=== PATIENT | female | born 1975 | race African-American/Black ===

== ENCOUNTER 2020-09-12 11:16 | Outpatient (REF) | payer MEDICAID, SELFPAY ==
[2020-09-12 13:34] LABS: Hematocrit 40.8 % (37-47); Hemoglobin 13.9 g/dl (12.0-16.0); Mean Corpuscular HGB Conc 34.1 g/dl (31.0-35.0); Mean Corpuscular Hemoglobin 30.5 pg (27.0-33.0); Mean Corpuscular Volume 89.5 fL (80-98); Platelet Count 264 X10*3/uL (160-400); Red Blood Count 4.56 X10*6/uL (4.20-5.50); Red Cell Distribution Width 11.9 % (11.0-16.0); White Blood Count 5.5 X10*3/uL (4.8-10.8)
[2020-09-12 13:58] LABS: Alanine Aminotransferase 24 U/L (0-31); Albumin Level 4.4 g/dL (3.5-5.0); Alkaline Phosphatase 71 U/L (39-117); Anion Gap 10 (12-20); Aspartate Amino Transferase 15 U/L (5-31); Bilirubin Total 1.1 mg/dL (0.0-1.0); Blood Urea Nitrogen 9 mg/dL (9-16); Calcium 9.3 mg/dL (8.4-10.2); Carbon Dioxide 32 mmol/L (22-29); Chloride 104 mmol/L (96-108); Estimated Glomerular Filt Rate > 60; Glucose Random 92 mg/dL (60-115); Sodium 142 mmol/L (135-145); Total Protein 7.6 g/dL (6.5-8.0)
[2020-09-12 14:19] LABS: Vitamin B12 674 pg/mL (200-900)
[2020-09-12 14:32] LABS: Erythrocyte Sedimentation Rate 3 MM/HR (0-20)
[2020-09-15 18:32] LABS: Acetylcholine Receptor Binding <0.30 nmol/L
== END 2020-09-12 11:17 | disposition home or self-care (01) ==
LOC: HO.LAB 11:16
PROVIDERS: PCP Internal Medicine; Visit Provider Internal Medicine
DX: M79.2 Neuralgia and neuritis, unspecified (principal); R52 Pain, unspecified
CPT/HCPCS: 36415; 80053; 82607; 83519; 85027; 85652

== ENCOUNTER → 2020-11-07 15:34 | Outpatient (BNVA) | payer MEDICAID, SELFPAY | PROVIDERS: PCP Internal Medicine; Visit Provider Nurse Practitioner Family | DX: M47.22 Other spondylosis with radiculopathy, cervical region (principal); M79.18 Myalgia, other site | CPT/HCPCS: 99212 ==

== ENCOUNTER 2021-01-02 15:57 | Outpatient (REF) | payer MEDICAID, SELFPAY ==
--- NOTE | ~2021-01-02 | MM_ITS ---
EXAMINATION: MM DIAGNOSTIC DIGITAL BREAST TOMOSYNTHESIS, BILATERAL US DIAGNOSTIC ULTRASOUND BREAST, LEFT CLINICAL INFORMATION: 45-year-old with left breast pain noted at time of screening appointment. Screening converted to diagnostic. Mild bruising in area pain. No palpable mass or discharge. Prior history right breast surgery 2013. Family history breast cancer, mother. The lifetime risk of breast cancer based on the Tyrer-Cuzick Model is 37%. COMPARISON: Mammography: 05/06/2018 (new baseline). TECHNIQUE: Digital breast tomosynthesis is performed in both the craniocaudal and mediolateral oblique views along with computer-aided detection (CAD). Synthesized 2D images are generated from the tomosynthesis. Ultrasound left breast is targeted to the area of clinical concern, outer quadrant which also includes the area of subtle cutaneous bruising. Grayscale imaging and color Doppler are performed without and with harmonics. FINDINGS: There are scattered areas of fibroglandular density (ACR BI-RADS breast composition Category b). Parenchymal pattern is similar to prior exam. There is no interval mass or architectural abnormality or abnormal calcifications. No developing density. No skin thickening or retraction. No coarsening of the Kaushik's ligaments. No duct ectasia. No significant changes. Ultrasound demonstrates no cystic or solid mass, architectural abnormality, or focal duct ectasia. No skin thickening or edema tracking in the soft tissue planes. Results are discussed with the patient at time of visit, using an bilingual interpreter. MM/MM tomosynthesis diagnostic BI IMPRESSION: 1. No mammographic evidence of malignancy or inflammatory changes. 2. Unremarkable targeted left breast ultrasound. ASSESSMENT: BI-RADS 1: Negative RECOMMENDATION: 1. Patient should be managed based on the clinical impression. 2. The lifetime risk of breast cancer based on the Tyrer-Cuzick Model is 37%. Additional annual adjunct screening with breast MRI may be of benefit in women with a risk score of 20% or greater. 3. Otherwise, routine annual screening mammography. This patient's information was entered into a reminder system with a target due date for their next mammogram.
== END 2021-01-02 15:58 | disposition home or self-care (01) ==
LOC: HO.MAMMO 15:57
PROVIDERS: PCP Internal Medicine; Visit Provider Internal Medicine
DX: N64.4 Mastodynia (principal)
CPT/HCPCS: 76642; 77062; 77066

== ENCOUNTER 2021-02-17 11:37 | Day surgery (SDC) | payer MEDICAID, SELFPAY ==
--- NOTE | 2021-02-15 10:43 | HO.ANESPROP2 ---
Documented by User: Jackie Julioney 02/15/21 10:44 HPI - Anesthesia Eval Consult details Narrative: 45yo F for Right C5-C6-C7 Medial Branch Blocks PMFSH Active Problems Active Problems: All Active Problems (Updated 02/13/21 @ 11:40 by Angela Peng) Spondylosis of cervical spine with radiculopathy (Acute) Myofascial pain (Acute) Past Medical History Medical History Asthma Cervical radiculopathy HTN (hypertension) Surgical History Surgical History H/O tubal ligation Status post left breast biopsy Social History Social History Patient Tobacco Use Status: Current everyday Tobacco user Use of substances other than those prescribed or required for medical reasons: No Are you DNR?: No Advance Directives: No Advance Directives Information Provided: Yes Meds Allergies Allergy/AdvReac Type Severity Reaction Status Date / Time aspirin [ASA] Allergy Severe SWELLING, Verified 02/17/21 12:41 throat edema Home Medications Medication Instructions Recorded Confirmed Last Taken Type albuterol sulfate [ProAir HFA] 2 puff PO Q4-6H PRN 02/13/21 02/13/21 Unknown History brimonidine 1 drp OPHTHALMIC (EYE) Q12H 02/13/21 02/13/21 Unknown History duloxetine 1 cap PO DAILY 02/13/21 02/13/21 Unknown History fexofenadine 1 tab PO DAILY 02/13/21 02/13/21 Unknown History fluticasone propionate 1 - 2 spray INTRANASAL DAILY PRN 02/13/21 02/13/21 Unknown History fluticasone propionate [Flovent 1 puff PO BID 02/13/21 02/13/21 Unknown History Diskus] gabapentin 1 cap PO TID 02/13/21 02/13/21 Unknown History hydrochlorothiazide 1 tab PO DAILY 02/13/21 02/13/21 Unknown History Exam Exam Date and Time: February 15, 2021 1043 Height,Weight and Vital Signs: Weight 72.575 kg Pertinent Lab Results Pertinent Lab Results: Laboratory Tests 09/12/20 09/12/20 11:48 11:48 WBC 5.5 Hgb 13.9 Hct 40.8 Plt Count 264 Sodium 142 Potassium 4.0 Chloride 104 Carbon Dioxide 32 H BUN 9 Creatinine 0.93 Assessment and Plan Assessment Anesthesia Assessment: Chart Reviewed Documented by User: Johnny Mathew 02/17/21 14:02 PMF Past Medical History Medical History Asthma Cervical radiculopathy HTN (hypertension) Surgical History Surgical History H/O tubal ligation Status post left breast biopsy Social History Social History Patient Tobacco Use Status: Current everyday Tobacco user Use of substances other than those prescribed or required for medical reasons: No Are you DNR?: No Advance Directives: No Advance Directives Information Provided: Yes Meds Allergies Allergy/AdvReac Type Severity Reaction Status Date / Time aspirin [ASA] Allergy Severe SWELLING, Verified 02/17/21 12:41 throat edema Home Medications Medication Instructions Recorded Confirmed Last Taken Type albuterol sulfate [ProAir HFA] 2 puff PO Q4-6H PRN 02/13/21 02/13/21 Unknown History brimonidine 1 drp OPHTHALMIC (EYE) Q12H 02/13/21 02/13/21 Unknown History duloxetine 1 cap PO DAILY 02/13/21 02/13/21 Unknown History fexofenadine 1 tab PO DAILY 02/13/21 02/13/21 Unknown History fluticasone propionate 1 - 2 spray INTRANASAL DAILY PRN 02/13/21 02/13/21 Unknown History fluticasone propionate [Flovent 1 puff PO BID 02/13/21 02/13/21 Unknown History Diskus] gabapentin 1 cap PO TID 02/13/21 02/13/21 Unknown History hydrochlorothiazide 1 tab PO DAILY 02/13/21 02/13/21 Unknown History Exam Airway Mallampati Class: II TM Dist: >3cm Neck ROM: Full
--- NOTE | ~2021-02-17 | FL_ITS ---
EXAMINATION: XR FLUOROSCOPY WITH IMAGES CLINICAL INFORMATION: Cervical medial branch blocks. COMPARISON: None. TECHNIQUE: Fluoroscopy performed by Dr. Norris Enrique. Fluoroscopy time: 0.5 minutes DAP: 1.94 mGycm2 Images: 4 FINDINGS: There are 4 needles positioned along the right posterior neck adjacent to the lateral masses of C6, C5, C4 and C3 vertebra with soft tissue contrast opacification. FL/FL guidance in OR IMPRESSION: Fluoroscopy provided to physician during pain management.
[2021-02-17 13:00] VITALS: BP 144/64; PULSE 75; RESP 18; TEMP 36.2; O2SAT 99; BMI 27.9
[2021-02-17 13:00] LABS: UPreg QC Valid YES; Urine Pregnancy NEGATIVE (NEGATIVE)
[2021-02-17] MEDS: Lactated Ringers 1,000 ML 100 ML IVCONT (13:16)
--- NOTE | 2021-02-17 15:58 | HO.ANESPROP2 ---
HPI - Anesthesia Eval Consult details Narrative: 45 yo female patient here for Right C5-C6-C7 Medial Branch Blocks PMFSH Active Problems Active Problems: All Active Problems (Updated 02/13/21 @ 11:40 by Angela Peng) Spondylosis of cervical spine with radiculopathy (Acute) Myofascial pain (Acute) Past Medical History Medical History (Updated 02/17/21 @ 16:23 by Baylee Xie) Asthma Cervical radiculopathy HTN (hypertension) Family History Family history of problems with anesthesia: Yes (Brother- ? Cardiac arrest) Surgical History Surgical History H/O tubal ligation Status post left breast biopsy History of Problems with Anesthesia: No Social History Social History (Updated 02/17/21 @ 16:02 by Baylee Xie) Patient Tobacco Use Status: Current everyday Tobacco user Smoked in Last 30 Days: Yes Use of substances other than those prescribed or required for medical reasons: No Are you DNR?: No Advance Directives: No Advance Directives Information Provided: Yes Meds Allergies Allergy/AdvReac Type Severity Reaction Status Date / Time aspirin [ASA] Allergy Severe SWELLING, Verified 02/17/21 12:41 throat edema Active Medications: Current Medications Generic Name Dose Route Start Last Admin Trade Name Freq PRN Reason Stop Dose Admin Albuterol Sulfate 2.5 mg 02/17/21 12:41 Albuterol Sulfate (0.083%) 2.5 Mg/3 Ml Vial.Neb INHALE ONCE PRN Shortness of Breath/Wheezing Fentanyl 50 mcg 02/17/21 14:02 Fentanyl Citrate/Pf 100 Mcg/2 Ml Vial IVPUSH Q5M PRN Pain, Severe (Pain Scale 7-10) Lactated Ringer's 1,000 mls @ 100 mls/hr 02/17/21 12:45 02/17/21 13:16 Lr IVCONT 100 mls/hr .Q10H ESTELA Administration Ondansetron HCl 4 mg 02/17/21 14:02 Ondansetron Hcl 4 Mg/2 Ml Vial IVPUSH ONCE PRN Nausea and Vomiting Oxycodone HCl 10 mg 02/17/21 14:02 Oxycodone Hcl Immed Release 5 Mg Tablet PO ONCE PRN Pain, Severe (Pain Scale 7-10) Home Medications Medication Instructions Recorded Confirmed Last Taken Type albuterol sulfate [ProAir HFA] 2 puff PO Q4-6H PRN 02/13/21 02/13/21 Unknown History brimonidine 1 drp OPHTHALMIC (EYE) Q12H 02/13/21 02/13/21 Unknown History duloxetine 1 cap PO DAILY 02/13/21 02/13/21 Unknown History fexofenadine 1 tab PO DAILY 02/13/21 02/13/21 Unknown History fluticasone propionate 1 - 2 spray INTRANASAL DAILY PRN 02/13/21 02/13/21 Unknown History fluticasone propionate [Flovent 1 puff PO BID 02/13/21 02/13/21 Unknown History Diskus] gabapentin 1 cap PO TID 02/13/21 02/13/21 Unknown History hydrochlorothiazide 1 tab PO DAILY 02/13/21 02/13/21 Unknown History Exam Exam Date and Time: February 17, 2021 1558 Height,Weight and Vital Signs: Height 5 ft 4 in Weight 73.936 kg Last Vital Signs Temp 97.1 F 02/17/21 13:00 Pulse 75 02/17/21 13:00 Resp 18 02/17/21 13:00 BP 144/64 H 02/17/21 13:00 Pulse Ox 99 02/17/21 13:00 Pertinent Lab Results Pertinent Lab Results: Laboratory Tests 02/17/21 12:42 Urine Test NEGATIVE Airway Mallampati Class: II TM Dist: >3cm Neck ROM: Full Loose/Missing/Broken Teeth: Yes (Broken bottom right) Heart: RRR Lungs: CTAB Assessment and Plan Assessment Anesthesia Assessment: Anesthesia Plan Discussed and Chart Reviewed Final Anesthetic Review NPO: Yes ASA Class: II Final Preanesthetic Review: No Changes in Pt Med Stat, Meds/Allgs Chart Reviewed, Consent Obtained/Reviewed and Anes Risks/Benef Reviewed Patient Risk: Low Procedure Risk: Intermediate Assessment/Block/Sedation in SS: Assess/Block/Sedation-SS Anesthetic Plan Anesthetic Plan: MAC: Disposition: Standard PACU
--- NOTE | 2021-02-17 16:25 | P.HPSUR_ITS ---
Pre-Procedural Eval Section A The patient is an INPATIENT: No Changes since office visit: Yes Patient answered all questions The History & Physical has been completed within 30 days and I have reviewed it.: No Section B Chief Complaint: Spondylosis of Cervical Spine Details of Present Illness: As above Relevant Family History (Specify if Yes): No Relevant Social History: None Present Medications: None Medical History: No relevant PMH History of Previous Operations: No relevant previous surgery Allergies: Allergies Allergy/AdvReac Type Severity Reaction Status Date / Time aspirin [ASA] Allergy Severe SWELLING, Verified 02/17/21 12:41 throat edema Review of Systems Sugical H&P ROS: Negative: Constitution, Cardiovascular, Respiratory, Neurological, Psychiatric, Hem-Onc, Allergic/Immunologic, Gastrointestinal, Genitourinary, Musculoskeletal, Integumentary, Endocrine and Eyes/Ears/Nose/Throat Exam Surgical H&P Exam: Normal: HEENT, Normal: Heart, Normal: Lungs, Normal: Extre mities, Normal: Abdomen, Normal: Skin and Normal: Neurological Plan Diagnosis/Plan: Unchanged I have reviewed the history and physical and performed a pertinent physical examination on my patient. No changes have occurred unless specified.
--- NOTE | 2021-02-17 16:59 | P.BOP_ITS ---
Brief Operative Note Date of Service: 02/17/21 Pre-op diagnosis: Spondylosis cervical spine Post-op diagnosis: same Procedure: Right-sided C4-C5-C6-C7 medial branch block therapeutic Implants: None Surgeon: Norris Enrique MD Anesthesia: MAC Was an Tractor Mechanic Helper used for this Procedure?: No Estimated blood loss (mL): 1 Pathology: none sent Condition: stable Disposition: PACU
--- NOTE | 2021-02-17 16:59 | P.OP_ITS ---
Operative Note Operative Note Date of Service: 02/17/21 Narrative: Informed consent was explained to the patient. All questions were explained and answered. The patient was taken inside the operating room where she was positioned prone on the operating table. [employer] monitors were applied. Patient was sedated. Time-out was performed delineating correct site, side, the nature of the procedure, patient's allergy, preoperative antibiotic if needed. All operating room staff was participating in OR time-out procedure. The back of the neck and upper thorax were prepped with ChloraPrep and draped with sterile towels. Sterilely draped C-arm was brought over the operating field and sq picture of C4- C5- C6- C7 vertebrae were delineated on the screen. Points of interest were delineated as lateral masses on the right of the vertebrae as above. The waste of each lateral mass was chosen as the target of the tip of the needles on AP view and center of paralelloid delineating the lateral mass on the lateral view was chosen as control of each needle position. The projections of the point of interest to the skin were injected with the small amount of local anesthetic lidocaine 2% 1-1.5 cc. After that 22 gauge 3and 1/2 inch spinal needles were driven to the point of interest in tunnel vision fashion. After needles gently contacted the bone at the point of interests the needle was injected with small amount of bupivacaine 0.5%-1cc mixed with kenalog. Total dose of kenalog was 80 mg. Upon completion of the injections the needles were removed and sterile dressings were applied, the patient was awaken and taken outside of the operating room to recovery room where she recovered uneventfully. She went home without immediate complications.
[2021-02-17 17:00] VITALS: BP 118/66; PULSE 65; RESP 10; TEMP 36.2; O2SAT 97
[2021-02-17 17:15] VITALS: BP 131/72; PULSE 64; RESP 18; TEMP 36.2; O2SAT 99
--- NOTE | 2021-02-17 17:27 | PC.NURSE ---
AWAKE RESP EASY REGULAR TOLERATED PO FLUIDS, REVIEW DISCHARGE INSTRUATIONS. NEURO STATUS STABLE NO WEAKNESS REPORTED
== END 2021-02-17 17:36 | disposition home or self-care (01) ==
PROVIDERS: Nurse Practitioner; PCP Internal Medicine; Visit Provider Anesthesiology
PROC: (CPT 64490; principal; 2021-02-17 13:30)
DX: M47.22 Other spondylosis with radiculopathy, cervical region (principal); M79.18 Myalgia, other site; I10 Essential (primary) hypertension; J45.909 Unspecified asthma, uncomplicated; Z79.51 Long term (current) use of inhaled steroids; Z79.899 Other long term (current) drug therapy; Z88.8 Allergy status to other drugs, medicaments and biological substances
CPT/HCPCS: 64490; 64491; 81025; J2250; J3010; J3300; Q9967

== ENCOUNTER 2023-10-09 11:17 | Outpatient (REF) | payer MEDICAID, SELFPAY ==
[2023-10-09 14:36] LABS: MANUAL DIFF FLAG NO
[2023-10-09 14:43] LABS: Basophils Percent Auto 0.3 % (0-2); Eosinophils Absolute Auto 0.1 X10*3/uL (0.0-0.4); Eosinophils Percent Auto 1.6 % (0-4); Hematocrit 41.9 % (37.0-47.0); Hemoglobin 14.3 g/dl (12.0-16.0); Imm Gran Abs Auto 0.07 X10*3/uL (0.00-0.03); Imm Gran Pct Auto 0.9 % (0.0-0.4); Lymphocytes Absolute Auto 1.7 X10*3/uL (1.2-4.9); Mean Corpuscular HGB Conc 34.1 g/dl (31.0-35.0); Mean Corpuscular Hemoglobin 29.9 pg (27.0-33.0); Mean Corpuscular Volume 87.7 fL (80.0-98.0); Mean Platelet Volume 8.9 fL (9.4-12.3); Monocytes Absolute Auto 0.5 X10*3/uL (0.1-1.2); Monocytes Percent Auto 5.7 % (2-11); Neutrophils Absolute Auto 5.5 x10*3/uL (2.0-8.3); Neutrophils Percent Auto 69.5 % (45-73); Platelet Count 236 X10*3/uL (160-400); Red Blood Count 4.78 X10*6/uL (4.20-5.50); Red Cell Distribution Width 12.1 % (11.0-16.0); White Blood Count 7.9 X10*3/uL (4.8-10.8)
[2023-10-09 15:05] LABS: Alanine Aminotransferase 28 U/L (0-31); Alkaline Phosphatase 63 U/L (39-117); Anion Gap 10 (12-20); Aspartate Amino Transferase 18 U/L (5-31); Bilirubin Total 0.8 mg/dL (0.0-1.0); Blood Urea Nitrogen 8 mg/dL (9-16); Calcium 8.8 mg/dL (8.4-10.2); Carbon Dioxide 28 mmol/L (22-29); Chloride 103 mmol/L (96-108); Cholesterol 151 mg/dL (<200); Estimated Glomerular Filt Rate > 60; Glucose Random 165 mg/dL (60-115); HDL Cholesterol 46 mg/dL (>40); LDL Cholesterol Calculated 86 mg/dL (<100); Potassium 3.8 mmol/L (3.3-5.1); Sodium 137 mmol/L (135-145); Total Protein 7.6 g/dL (6.5-8.0); Triglycerides 98 mg/dL (<150)
[2023-10-09 15:23] LABS: TSH reflex Free T4 1.61 uIU/mL (0.32-4.0); Vitamin D 25-OH Total 18.5 ng/mL (>30)
[2023-10-09 15:36] LABS: Folate 5.5 ng/mL (> or = 4.0); Vitamin B12 755 pg/mL (200-900)
[2023-10-10 08:10] LABS: HIV AB/AG Nonreactive (Nonreactive); HIV Num 1 0.05 S/CO (0.00-0.99); ~HepC Num1 0.11 S/CO (0.00-0.79); ~Hepatitis C Antibody Nonreactive (Nonreactive)
== END 2023-10-09 11:18 | disposition home or self-care (01) ==
LOC: HO.CHCLDS 11:17
PROVIDERS: Visit Provider Internal Medicine
DX: Z00.00 Encounter for general adult medical examination without abnormal findings (principal); Z11.4 Encounter for screening for human immunodeficiency virus [HIV]; R20.2 Paresthesia of skin
CPT/HCPCS: 36415; 80053; 80061; 82306; 82607; 82746; 84443; 85025; 86803; 87389

== ENCOUNTER 2023-10-22 14:52 | Outpatient (REF) | payer MEDICAID, SELFPAY ==
[2023-10-22 17:43] LABS: Estimated Average Glucose 117 mg/dL; Hemoglobin A1c % 5.7 % (<6.0)
== END 2023-10-22 14:53 | disposition home or self-care (01) ==
LOC: HO.CHCLDS 14:52
PROVIDERS: Visit Provider Internal Medicine
DX: R73.09 Other abnormal glucose (principal)
CPT/HCPCS: 36415; 83036